=== PATIENT | male | born 1990 | race Caucasian/White ===

== ENCOUNTER 2022-08-24 02:40 | Emergency (ER) | payer MEDICAID, SELFPAY ==
[2022-08-24 02:51] VITALS: BP 130/81; BP 148/96; PULSE 135; PULSE 92; RESP 7; TEMP 36.9; O2SAT 92; O2SAT 97; BMI 23.7
--- NOTE | 2022-08-24 03:21 | ED_ITS ---
HPI - Overdose General Chief Complaint: Overdose Stated Complaint: OD Time Seen by Provider: 08/24/22 03:21 Source: patient Mode of arrival: EMS History of Present Illness HPI Narrative: This is a 31-year-old male who admits to using heroin, as per EMS he was found unresponsive in the bathroom then became alert in did not receive any Narcan EN route. Patient states that he was not attempting to harm himself and denies any SI or HI. Patient states that he is interested in detox. He also identifies a small folliculitis at the left medial thigh. Related Data Allergies Allergy/AdvReac Type Severity Reaction Status Date / Time No Known Allergies Allergy Unverified 03/08/20 16:52 Review of Systems Review of Systems: Pertinent positives and negatives as stated in HPI PMFSH Past Medical History Source: nursing notes reviewed Social History Social History Alcohol intake: never Smoked in Last 30 Days: Yes Use of substances other than those prescribed or required for medical reasons: Yes Substance Use Type: Crack/Cocaine and Heroin Physical Exam Vital Signs: Vital Signs: Last Vital Signs Temp 98.5 F 08/24/22 03:32 Pulse 82 08/24/22 03:32 Resp 14 08/24/22 03:32 BP 130/81 08/24/22 03:32 Pulse Ox 93 08/24/22 03:32 O2 Del Method 08/24/22 03:32 BMI result Body Mass Index 23.7 VITAL SIGNS: Reviewed. GENERAL: Well developed, well nourished, in no acute distress. HEAD: Normocephalic/atraumatic EYES: PERRLA, EOMI LUNGS: Normal breath sounds. No adventitious sounds or accessory muscle use. SpO2<93> CARDIOVASCULAR: Regular rate and rhythm without noted murmurs ABDOMEN: Soft, non-tender, non-distended with bowel sounds. MUSCULOSKELETAL: No tenderness, deformities, or effusions noted on gross inspection. EXTREMITIES: No cyanosis, clubbing or edema; LEFT LOWER EXTREMITY: There is a folliculitis noted at the left medial thigh with induration trace amount of fluctuance and no drainage. SKIN: Inspection of the skin reveals no rashes NEUROLOGIC: Alert and oriented x 4. Strength and sensation to light touch were grossly intact x 4. Medical Decision Making Medical Decision Making [facility] Narrative: 31-year-old male with accidental overdose and they folliculitis. He is requesting detox and and PJ eval was placed, home Narcan was ordered as well as COVID-19 and UDS. Patient placed in physician observation because the patient needed more time for PJ eval. At the time observation was started the patient's vital signs were stable, patient is alert and oriented, neuro: Nonfocal, CV RRR, lungs clear Differential Diagnosis Please see the discussion above Lab Data Please see the discussion above Discharge Plan Discharge Clinical Impression: Drug overdose, Cocaine abuse, Heroin use Patient Disposition: Still a Patient Interventions: Barber-Suicide Risk Severity Scale Last Done: 08/24/22 03:22
[2022-08-24 03:32] VITALS: BP 130/81; PULSE 82; RESP 14; TEMP 36.9; O2SAT 93
--- NOTE | 2022-08-24 03:33 | PC.NURSE ---
pt od on heroine and admits to taking cocaine all day as well pt desires detox pt c/o headache, L thigh abscess?
[2022-08-24] MEDS: Naloxone HCl Nasal TAKE HOME 4 MG SPRAY NOSTRILALT (04:22)
--- NOTE | 2022-08-24 04:26 | PC.NURSE ---
pt assessed, drowsy, alert to voice, refused covid swab and to be placed on o2. Dr. espinoza
--- NOTE | 2022-08-24 05:02 | PC.NURSE ---
pt refused COVID swab
--- NOTE | 2022-08-24 05:05 | PC.NURSE ---
pt refused vs to be assessed
[2022-08-24 06:00] VITALS: RESP 18
[2022-08-24 07:28] VITALS: BP 142/88; PULSE 62; RESP 14; TEMP 37; O2SAT 97
--- NOTE | 2022-08-24 07:57 | MHC.EDTECH ---
this pct attempted to obtain a covid swab on pt and pt refused stated its not his choice he is here so he is refusing all care
--- NOTE | 2022-08-24 09:25 | HO.SUDE ---
Addendum entered by Yanet Strong 08/24/22 13:31: Attempted follow up with pt. Pt did not wish to engage with t/w. Now declining ATS. Pt encouraged to reach out with questions or concerns. Original Note: Met with pt in ED17 to attempt to complete SUDE. Pt somnolent, unable to engage in conversation, however, is able to say yes when asked if interested in ATS. Pt willing to go to any facility.
--- NOTE | 2022-08-24 10:15 | PC.NURSE ---
Pt resting in bed, continues to refuse lab work
--- NOTE | 2022-08-24 11:38 | PC.NURSE ---
Pt more awake at this time, speaking with brother on phone
== END 2022-08-24 13:01 | disposition home or self-care (01) ==
PROVIDERS: Emergency Provider Student in an Organized Health Care Education/Training Program
DX: T40.1X1A Poisoning by heroin, accidental (unintentional), initial encounter (principal); Y92.9 Unspecified place or not applicable; F14.10 Cocaine abuse, uncomplicated; L73.9 Follicular disorder, unspecified; Z71.51 Drug abuse counseling and surveillance of drug abuser; Z79.899 Other long term (current) drug therapy
CPT/HCPCS: 99285